=== PATIENT | male | born 1950 | race Caucasian/White ===

== ENCOUNTER → 2017-10-12 | Outpatient (CLI) | payer BC ==
[~2017-10-12] MED LIST: BNC/20 PO
[2017-10-12 09:50] LABS: ALBUMIN 3.7 gm/dl (3.4-5.0); ALT/SGPT 19 U/L (12-78); AST/SGOT 10 U/L (15-37); BLOOD UREA NITROGEN 14 mg/dl (7-18); CALCIUM 8.4 mg/dl (8.5-10.1); CARBON DIOXIDE 31 mmol/L (21-32); CREATININE 1.07 mg/dl (0.60-1.40); GLUCOSE 102 mg/dl (70-99); POTASSIUM 4.3 mmol/L (3.5-5.1); SODIUM 141 mmol/L (136-145)
[2017-10-12 09:55] LABS: ALKALINE PHOSPHATASE 54 U/L (45-117); CHOLESTEROL 177 mg/dl (0-200); LDL CHOLESTEROL CALCULATED 100 mg/dl
[2017-10-12 10:06] LABS: HEMOGLOBIN A1C 5.7 % (4.5-5.6)
== END | disposition home or self-care (01) ==
LOC: C.LAB 08:47
PROVIDERS: ATTEND Internal Medicine
DX: D64.9 Anemia, unspecified (principal)